=== PATIENT | female | born 1990 | race African-American/Black ===

== ENCOUNTER 2018-06-30 23:50 | Emergency (ER) | payer OTHER ==
[~2018-06-30] VITALS: Ht 154.9 cm; Wt 56.7 kg
[2018-06-30] MEDS ORDERED: ACCUNEB SO1.25 MG/1 INH (23:54)
[2018-07-01 00:38] VITALS: BP 103/58
[2018-07-01] MEDS ORDERED: VENTOLIN HFA 1818 GM INH (00:44)
[2018-07-01] MEDS ORDERED: PREDNISONE 20 M20 MG PO (00:44)
== END 2018-07-01 00:49 | disposition home or self-care (01) ==
LOC: ER 23:50
DX: J45.909 Unspecified asthma, uncomplicated (principal)